=== PATIENT | male | born 1960 | race Two or more races ===

== ENCOUNTER 2022-07-02 10:09 | Emergency (ER) | payer OTHER ==
[~2022-07-02] VITALS: Ht 177.8 cm; Wt 78.0 kg
[2022-07-02] MEDS ORDERED: XOPENEX0.63 MG/3 (10:53)
[2022-07-02] MEDS ORDERED: XOPENEX0.63 MG/3 IH (14:55)
[2022-07-02] MEDS ORDERED: MEDROLPACK PO (14:55)
== END 2022-07-02 15:06 | disposition home or self-care (01) ==
LOC: ER 10:09
DX: R05.3 Chronic cough (principal); Z20.822 Contact with and (suspected) exposure to COVID-19

== ENCOUNTER 2023-04-11 10:20 | Outpatient (CLI) | payer OTHER ==
[~2023-04-11 10:20] MED LIST: MEDROLPACK PO; XOPENEX0.63 MG/3; XOPENEX0.63 MG/3 IH
== END 2023-04-11 10:26 | disposition home or self-care (01) ==
LOC: RAD 10:20
PROVIDERS: ATTEND General Practice
DX: R06.02 Shortness of breath (principal)

== ENCOUNTER 2023-08-20 12:45 | Outpatient (CLI) | payer OTHER | END 2023-08-20 12:59 | disposition home or self-care (01) | LOC: RAD 12:45 | PROVIDERS: ATTEND General Practice | DX: S22.31XA Fracture of one rib, right side, initial encounter for closed fracture (principal); S29.9XXA Unspecified injury of thorax, initial encounter ==

== ENCOUNTER 2023-08-22 12:12 | Emergency (ER) | payer OTHER ==
[2023-08-22] MEDS ORDERED: ASPIRIN 325 MG TABLET.EC PO STA (13:18)
[2023-08-22 13:57] LABS: HEMOGLOBIN 14.9 g/dL (13-16.00); MEAN CELL VOLUME 94.8 fL (80.0-100.00); MEAN CORPUSCULAR HEMOGLOBIN 32.9 pg (27.00-32.0); MEAN CORPUSCULAR HGB CONC 34.7 g/dl (32.0-36.0); PLATELET COUNT 214 K/uL (150-450); RED BLOOD COUNT 4.54 M/uL (4.00-6.00); RED CELL DISTRIBUTION WIDTH 15.1 % (11.5-14.5)
[2023-08-22 14:13] LABS: INR 0.98; PARTIAL THROMBOPLASTIN TIME 28.2 SECONDS (22.0-34.0); PROTHROMBIN TIME 10.3 SECONDS (9.0-11.5)
[2023-08-22 14:41] LABS: CALCIUM 8.9 mg/dL (8.5-10.1); CREATININE SERUM 0.97 mg/dL (0.70-1.30); GFR 78.95; POTASSIUM 4.02 mEq/L (3.5-5.1)
[2023-08-22] MEDS ORDERED: KETOROLAC TROMETHAMINE 60 MG VIAL IM ONE (14:45)
== END 2023-08-22 16:53 | disposition home or self-care (01) ==
LOC: ER 12:12
PROVIDERS: Emergency Medicine
DX: S22.41XA Multiple fractures of ribs, right side, initial encounter for closed fracture (principal); X58.XXXA Exposure to other specified factors, initial encounter; Y93.9 Activity, unspecified; Y92.9 Unspecified place or not applicable; Y99.9 Unspecified external cause status

== ENCOUNTER 2023-09-12 10:17 | Outpatient (CLI) | payer OTHER | END 2023-09-12 10:26 | disposition home or self-care (01) | LOC: RAD 10:17 | DX: S22.32XA Fracture of one rib, left side, initial encounter for closed fracture (principal) ==